=== PATIENT | female | born 1995 | race African-American/Black ===

== ENCOUNTER 2016-12-16 00:17 | Emergency (ER) | payer OTHER, MEDICAID ==
[~2016-12-16] VITALS: Ht 160 cm; Wt 63.0 kg
[2016-12-16 01:29] LABS: CLARITY URINE CLOUDY (CLEAR); COLOR URINE YELLOW (YELLOW); GLUCOSE URINE NEGATIVE (NEGATIVE); KETONES URINE NEGATIVE (NEGATIVE); LEUKOCYTE ESTERASE URINE 3+ (NEGATIVE); NITRITE URINE NEGATIVE (NEGATIVE); OCCULT BLOOD URINE 3+ (NEGATIVE); PH URINE 7.5 (4.5-8.0); PROTEIN URINE 1+ (NEGATIVE); SPECIFIC GRAVITY URINE 1.018 (1.005-1.030)
[2016-12-16 01:45] LABS: WBC URINE 25-50 /hpf (0-2)
[2016-12-16 01:46] LABS: BACTERIA URINE 2+; RBC URINE 25-50 /hpf (0-2); SQUAMOUS EPITHELIAL CELL URINE RARE /lpf (RARE/1+)
[2016-12-16] MEDS ORDERED: KETOROLAC 60MG/2ML VIAL IM ONE (02:30)
[2016-12-16] MEDS ORDERED: SODIUM CHLORIDE 0.9% 1,000 ML IV ONE (02:39)
[2016-12-16] MEDS ORDERED: MORPHINE SULFATE 4 MG/ML CPJ (NOT FOR IM USE) IV STA (02:39)
[2016-12-16] MEDS ORDERED: ONDANSETRON HCL 4MG/2ML VIAL IV STA (02:39)
[2016-12-16 02:51] LABS: BASOPHILS % 0.3 % (0.0-2.0); EOSINOPHILS % 0.3 % (0.0-5.0); HEMATOCRIT. 40.7 % (36.0-48.0); HEMOGLOBIN. 13.5 g/dL (12.0-16.0); LYMPHOCYTES % 17.3 % (20.0-50.0); MEAN CORPUSCULAR HEMOGLOBIN 29.3 pg (28.0-32.0); MEAN CORPUSCULAR HGB CONC 33.3 g/dL (31.0-37.0); MEAN CORPUSCULAR VOLUME 88.1 fL (81.0-99.0); MEAN PLATELET VOLUME 9.8 fl (7.4-10.4); MONOCYTES % 7.2 % (2.0-8.0); NEUTROPHILS % 74.9 % (40.0-76.0); PLATELET 188 x1000/uL (130-400); RED BLOOD CELL COUNT 4.62 mill/uL (4.2-5.4); RED CELL DISTRIBUTION WIDTH 12.8 % (11.6-14.6); WHITE BLOOD COUNT 9.5 x1000/uL (4.5-11.0)
[2016-12-16 03:00] LABS: ALANINE AMINOTRANSFERASE 18 IU/L (13-61); ALBUMIN 3.8 g/dL (3.4-5.0); ANION GAP 13; CALCIUM 9.2 mg/dL (8.5-10.1); CARBON DIOXIDE 24 mEq/L (21-32); CHLORIDE 108 mEq/L (98-107); INDEX HEMOLYSI 1 (1-3); INDEX ICTERIC 1 (1-4); INDEX LIPEMIC 1 (1-3); UREA NITROGEN BLOOD 15 mg/dL (7-21); eGFR > 60 mL/min (>60)
[2016-12-16] MEDS ORDERED: CEFTRIAXONE 1 G PREMIX 50 ML IV ONE (05:00)
[2016-12-16] MEDS ORDERED: KETOROLAC 30MG/ML VIAL IV ONE (06:45)
[2016-12-16 07:10] VITALS: BP 130/74
[2016-12-16 12:47] LABS: UCG SCREEN NEGATIVE
== END 2016-12-16 07:16 | disposition home or self-care (01) ==
LOC: ER 00:17
DX: N12 Tubulo-interstitial nephritis, not specified as acute or chronic (principal); N39.0 Urinary tract infection, site not specified
CPT/HCPCS: 36415; 74176; 80053; 81001; 81025; 85025; 96374; 96375; 99285; J0696; J1885; J2270; J2405; J7030; Z7610

== ENCOUNTER 2018-05-20 21:05 | Emergency (ER) | payer OTHER, MEDICAID ==
[~2018-05-20] VITALS: Ht 160 cm; Wt 68.0 kg
[2018-05-20 21:55] VITALS: BP 111/73
== END 2018-05-21 00:29 | disposition home or self-care (01) ==
LOC: ER 21:05
DX: J02.9 Acute pharyngitis, unspecified (principal); H66.92 Otitis media, unspecified, left ear
CPT/HCPCS: 99283

== ENCOUNTER 2020-05-26 02:39 | Emergency (ER) | payer MEDICAID, OTHER ==
[~2020-05-26] VITALS: Ht 157.5 cm; Wt 68.0 kg
[2020-05-26] MEDS ORDERED: ACETAMINOPHEN WITH CODEINE 300/30MG TABLET PO ONE (03:15)
[2020-05-26] MEDS ORDERED: TETANUS, DIPHTHERIA, PERTUSSIS VAC/PF 0.5ML (>7YR OLD) IM ONE (03:15)
[2020-05-26] MEDS ORDERED: BACITRACIN ZINC OINT UDPKT TOP ONE (03:15)
[2020-05-26] MEDS ORDERED: LIDOCAINE 1%/EPI 1:100,000 10 ML VIAL IJ ONE (03:15)
[2020-05-26 03:37] LABS: CHLORIDE 109 mEq/L (98-107)
[2020-05-26 03:39] LABS: BASOPHILS % 0.4 % (0.0-2.0); EOSINOPHILS % 0.5 % (0.0-5.0); HEMATOCRIT. 36.2 % (36.0-48.0); HEMOGLOBIN. 11.9 g/dL (12.0-16.0); LYMPHOCYTES % 28.5 % (20.0-50.0); MEAN CORPUSCULAR HEMOGLOBIN 28.7 pg (28.0-32.0); MEAN CORPUSCULAR VOLUME 87.1 fL (81.0-99.0); MEAN PLATELET VOLUME 9.3 fl (7.4-10.4); MONOCYTES % 7.8 % (2.0-8.0); NEUTROPHILS % 62.8 % (40.0-76.0); PLATELET 216 x1000/uL (130-400); RED BLOOD CELL COUNT 4.15 mill/uL (4.2-5.4); RED CELL DISTRIBUTION WIDTH 14.8 % (11.6-14.6)
[2020-05-26 03:41] LABS: ETHANOL BLOOD < 10 mg/dL
[2020-05-26] MEDS ORDERED: AMOXICILLIN/POTASSIUM CLAVULANATE 875/125MG TAB PO ONE (04:00)
[2020-05-26] MEDS ORDERED: HYDROCODONE/ACETAMINOPHEN 5/325MG TABLET PO STA (04:07)
[2020-05-26] MEDS ORDERED: KETOROLAC 15MG/ML VIAL IV ONE (04:15)
[2020-05-26] MEDS ORDERED: LORAZEPAM 2MG/ML CPJ IV ONE (04:15)
[2020-05-26 05:23] VITALS: BP 109/67
== END 2020-05-26 06:26 | disposition home or self-care (01) ==
LOC: ER 02:39
DX: S01.81XA Laceration without foreign body of other part of head, initial encounter (principal); Y08.89XA Assault by other specified means, initial encounter; Y93.89 Activity, other specified; Y92.89 Other specified places as the place of occurrence of the external cause; Y99.8 Other external cause status
CPT/HCPCS: 12014; 36415; 70450; 80053; 80320; 85025; 90471; 90715; 93005; 96374; 99285; J1885; J2060; J3490; G0480

== ENCOUNTER 2020-06-17 20:29 | Emergency (ER) | payer MEDICAID ==
[~2020-06-17] VITALS: Ht 160 cm; Wt 68.0 kg
[2020-06-17 23:01] VITALS: BP 112/76
== END 2020-06-17 23:02 | disposition home or self-care (01) ==
LOC: ER 20:29
DX: Z48.02 Encounter for removal of sutures (principal)
CPT/HCPCS: 99283